=== PATIENT | male | born 1960 | race Caucasian/White ===

== ENCOUNTER 2018-11-10 14:55 | Observation (INO) | payer SELFPAY ==
[2018-11-10 15:09] VITALS: BP 158/93; PULSE 90; RESP 18; TEMP 37; O2SAT 98; BMI 28.0
--- NOTE | 2018-11-10 15:11 | DI.RAD.S_ITS ---
PROCEDURE: XR CHEST 1V INDICATIONS: Chest pain TECHNIQUE: One view of the chest was acquired. COMPARISON: None. FINDINGS: Surgical changes and devices: None. Lungs and pleura: Lungs are clear. No pleural effusions or pneumothorax. Mediastinum: Mediastinal contours appear normal. Heart size is normal. Bones and chest wall: No suspicious bony lesions. Overlying soft tissues appear unremarkable. IMPRESSION: No acute cardiopulmonary disease. Dictated by: Ileana Jiménez M.D. on 11/10/2018 at 16:08 Approved by: Ileana Jiménez M.D. on 11/10/2018 at 16:08
[2018-11-10 15:22] LABS: Add Manual Diff / Slide Review NO; Basophils Absolute Auto 0 /uL (0-100); Basophils Percent Auto 0.5 % (0-2); Eosinophils Absolute Auto 0 /uL (0-450); Eosinophils Percent Auto 0.6 % (2-4); Hemoglobin 18.1 g/dL (13.5-17.5); Lymphocytes Absolute Auto 1900 /uL (1100-4500); Lymphocytes Percent Auto 24.7 % (25-40); Mean Corpuscular HGB Conc 34.2 % (30-36); Mean Corpuscular Hemoglobin 30.9 PG (26-34); Mean Corpuscular Volume 90.4 fL (80-100); Monocytes Absolute Auto 700 /uL (0-900); Monocytes Percent Auto 9.8 % (3-14); Neutrophils Absolute Auto 4900 /uL (1500-7000); Neutrophils Percent Auto 64.4 % (50-75); Platelet Count 215 X10^3/uL (150-400); Red Blood Cell Count 5.86 X10^6/uL (4.5-5.9); Red Cell Distribution Width 13.4 % (11.6-14.8); White Blood Cell Count 7.6 X10^3/uL (4.5-11.0)
--- NOTE | 2018-11-10 15:33 | ED.CHESTPAIN ---
HPI - Chest Pain General Chief Complaint: Chest Pain Stated Complaint: CHEST PAIN Time Seen by Provider: 11/10/18 15:08 Source: patient Mode of arrival: ambulatory Limitations: no limitations History of Present Illness HPI narrative: Patient is a 58-year-old male who presents with chest discomfort. He actually has been experiencing shortness of breath with exertion progressively getting worse over the last 4-5 days. His tried again to come in yesterday however refused. He says with minimal exertion such as walking he has chest discomfort requiring him to stop and catch his breath. Pain is on the left side it is non radiating. He has some mild discomfort now he says level 1-2. He denies any history of coronary artery disease. He states that he has previously been diagnosed with hypertension hyperlipidemia but does not like the way medication makes him feel so he has stopped it. He has not seen a doctor for over 10 years. MD complaint: chest pain Onset (ago): day(s) (5) Duration: progressively worsening Onset: during exertion Pain location: left chest Severity: moderate Relieving factors: rest Exacerbating factors: exertion Related Data Home Medications Medication Instructions Recorded Confirmed No Known Home Medications 11/10/18 11/10/18 Allergies Allergy/AdvReac Type Severity Reaction Status Date / Time No Known Drug Allergies Allergy Verified 11/10/18 15:44 Review of Systems Review of Systems GENERAL: Denies chills, fatigue, malaise, fever, sweats, travel HEENT: Denies sinus pain, ear pain, sore throat, difficulty swallowing, neck pain RESPIRATORY: + shortness of breath with exertion Denies dyspnea, cough, wheezing, hemoptysis, sputum. CARDIOVASCULAR: See HPI GASTROINTESTINAL: Denies nausea, vomiting, abdominal pain, diarrhea, constipation, melena. : Denies dysuria, frequency, incontinence, hematuria, urinary retention, flank pain. MUSCULOSKELETAL: Denies weakness, joint pain, or bony pain SKIN: No rash, no erythema, no pruritus NEUROLOGIC: Denies weakness, dizziness, headache, numbness, change in speech, confusion PSYCHIATRIC: No concerning psychosocial issues. 12 point review of systems is negative except for those stated above and HPI [facility] Medical History Patient denies significant medical history (Acute) Social History Smoking Status: Never smoker Social History Smoking Status: Never smoker Exam Initial Vital Signs Initial Vital Signs: Vital Signs Temperature 98.6 F 11/10/18 15:09 Pulse Rate 90 11/10/18 15:09 Respiratory Rate 18 11/10/18 15:09 Blood Pressure 158/93 H 11/10/18 15:09 Pulse Oximetry 98 11/10/18 15:09 GENERAL: Well-appearing, well-nourished and in no acute distress. HEENT: Head atraumatic,EOMI, pupils reactive, face symmetric, moist mucous membranes CARDIOVASCULAR: Regular rate and rhythm without murmurs, rubs or gallops. RESPIRATORY: Breath sounds equal bilaterally, no wheezes rales or rhonchi. ABDOMEN: Soft, nontender. Normoactive bowel sounds all 4 quadrants. No guarding or rebound. EXTREMITIES: Normal range of motion, no clubbing or edema. Neurovascularly intact NEUROLOGICAL: Alert and oriented x4.Normal gait and speech. SKIN: Warm, dry, no laceration, no petechiae, no rashes or lesions. Course Orders Ordered: ED Orders 11/10/18 15:05 B Type Natriuretic Peptide Stat Complete Blood Count AUTO DIFF Stat Comprehensive Metabolic Panel Stat Lipase Stat Partial Thromboplastin Time Stat Prothrombin Time INR Stat Troponin & CK Cardiac Panel Stat 11/10/18 15:11 XR chest 1V Stat EKG-12 Lead Stat 11/10/18 15:18 EKG-12 Lead Stat Sodium Chloride (Normal Saline 0.9%) 1,000 mls @ 75 mls/hr IV CONT MARGARETTE Last Infusion: 11/10/18 18:11 Dose: 150 mls/hr Admin: 11/10/18 15:50 Dose: 150 mls/hr Nitroglycerin (Nitrostat) 0.4 mg SL [id number] PRN PRN Reason: Chest Pain Discontinued Medications Aspirin (Aspirin Chew) 324 mg PO NOW ONE Stop: 11/10/18 15:12 Last Admin: 11/10/18 15:50 Dose: 324 mg Vital Signs - 8 hr 11/10/18 15:09 11/10/18 16:00 11/10/18 17:15 Temperature 98.6 F Pulse Rate 90 78 60 Respiratory Rate 18 16 Blood Pressure 158/93 H Blood Pressure [Left Arm] 143/87 H 156/70 H Pulse Oximetry 98 98 11/10/18 18:12 11/10/18 18:18 Temperature 98.0 F Pulse Rate 69 68 Respiratory Rate 21 16 Blood Pressure 139/89 145/85 H Blood Pressure [Left Arm] Pulse Oximetry 97 98 MDM - Chest Pain Lab Data Attestation: I reviewed the patient's lab results. Result diagrams: 11/10/18 15:05 11/10/18 15:05 Lab Results 11/10/18 11/10/18 11/10/18 Range/Units 15:05 15:05 15:05 WBC 7.6 (4.5-11.0) X10^3/uL RBC 5.86 (4.5-5.9) X10^6/uL Hgb 18.1 H (13.5-17.5) g/dL Hct 53.0 (41-53) % MCV 90.4 (80-100) fL MCH 30.9 (26-34) PG MCHC 34.2 (30-36) % RDW 13.4 (11.6-14.8) % Plt Count 215 (150-400) X10^3/uL Neut % (Auto) 64.4 (50-75) % Lymph % (Auto) 24.7 L (25-40) % [place] % (Auto) 9.8 (3-14) % Eos % (Auto) 0.6 L (2-4) % Baso % (Auto) 0.5 (0-2) % Neut # (Auto) 4900 (4184-0315) /uL Lymph # (Auto) 1900 (0803-9032) /uL [place] # (Auto) 700 (0-900) /uL Eos # (Auto) 0 (0-450) /uL Baso # (Auto) 0 (0-100) /uL PT 12.0 (10.1-12.7) SECONDS INR 1.0 (0.9-1.3) APTT 34 (26.4-36.2) SECONDS Sodium 142 (137-145) mmol/L Potassium 3.8 (3.4-5.1) mmol/L Chloride 104 (98-107) mmol/L Carbon Dioxide 27 (22-32) mmol/L BUN 16 (9-20) mg/dL Creatinine 1.10 (0.66-1.25) mg/dL Estimated GFR > 60.0 (>60) mL/min BUN/Creatinine Ratio 14.5 (6-22) Glucose 101 H (70-100) mg/dL Calcium 9.8 (8.4-10.2) mg/dL Total Bilirubin 0.8 (0.2-1.3) mg/dL AST 25 (17-59) IU/L ALT 19 L (21-72) IU/L Alkaline Phosphatase 80 (38-126) U/L Total Creatine Kinase 55 (55-170) U/L CK-MB (CK-2) TNP CK-MB (CK-2) Rel Index TNP Troponin I < 0.012 (0.01-0.034) ng/mL B-Natriuretic Peptide (<100) Total Protein 8.1 (6.3-8.2) g/dL Albumin 4.6 (3.5-5.0) g/dL Globulin 3.5 (1.7-4.1) g/dL Albumin/Globulin Ratio 1.3 (1.0-2.8) Lipase 142 (23-300) U/L 11/10/18 Range/Units 15:05 WBC (4.5-11.0) X10^3/uL RBC (4.5-5.9) X10^6/uL Hgb (13.5-17.5) g/dL Hct (41-53) % MCV (80-100) fL MCH (26-34) PG MCHC (30-36) % RDW (11.6-14.8) % Plt Count (150-400) X10^3/uL Neut % (Auto) (50-75) % Lymph % (Auto) (25-40) % [place] % (Auto) (3-14) % Eos % (Auto) (2-4) % Baso % (Auto) (0-2) % Neut # (Auto) (7719-4763) /uL Lymph # (Auto) (0264-7255) /uL [place] # (Auto) (0-900) /uL Eos # (Auto) (0-450) /uL Baso # (Auto) (0-100) /uL PT (10.1-12.7) SECONDS INR (0.9-1.3) APTT (26.4-36.2) SECONDS Sodium (137-145) mmol/L Potassium (3.4-5.1) mmol/L Chloride (98-107) mmol/L Carbon Dioxide (22-32) mmol/L BUN (9-20) mg/dL Creatinine (0.66-1.25) mg/dL Estimated GFR (>60) mL/min BUN/Creatinine Ratio (6-22) Glucose (70-100) mg/dL Calcium (8.4-10.2) mg/dL Total Bilirubin (0.2-1.3) mg/dL AST (17-59) IU/L ALT (21-72) IU/L Alkaline Phosphatase (38-126) U/L Total Creatine Kinase (55-170) U/L CK-MB (CK-2) CK-MB (CK-2) Rel Index Troponin I (0.01-0.034) ng/mL B-Natriuretic Peptide < 100 (<100) Total Protein (6.3-8.2) g/dL Albumin (3.5-5.0) g/dL Globulin (1.7-4.1) g/dL Albumin/Globulin Ratio (1.0-2.8) Lipase (23-300) U/L Urine Dip Bedside Urine Glucose Negative Bedside Urine Bilirubin - Negative Bedside Urine Ketone - Negative Urine Specific [place] 1.015 Bedside Urine Occult Blood - Negative Bedside Urine pH 7.0 Bedside Urine Protein - Negative Bedside Urine Urobilinogen +/- 1mg Bedside Urine Nitrite - Negative Bedside Urine Leukocytes - Negative Esterase ECG Data Attestation: I personally reviewed and interpreted this ECG as follows: Prior ECG tracings: not available for review Interpretation: Sinus rhythm rate 88 year interval the for T-wave inversion noted in lead [address] elevations no depression some other signs of ischemia. No prior to compare. EKG 2. Sinus rhythm rate 71. Interval 185 similar to previous MDM Narrative Medical decision making narrative: Patient is given aspirin and nitro for chest discomfort pain resolved. Troponin is negative. Symptoms are significantly concerning for cardiac disease. Dr. Lamas happily accepts patient for chest pain observation Discharge Plan Departure Patient Disposition: Admitted as Observation Clinical Impression: Chest pain Qualifiers: Chest pain type: other chest pain Qualified Code(s): R07.89 - Other chest pain Discharge Date/Time: 11/10/18 18:13 Interventions: ED Discharge Assessment Last Done: 11/10/18 18:12 Admit Date/Time: 11/10/18 17:29 Admit Provider: Sofy Lamas
[2018-11-10 15:34] LABS: Alanine Aminotransferase 19 IU/L (21-72); Albumin 4.6 g/dL (3.5-5.0); Albumin Globulin Ratio 1.3 (1.0-2.8); Alkaline Phosphatase 80 U/L (38-126); Aspartate Aminotransferase 25 IU/L (17-59); BUN Creatinine Ratio 14.5 (6-22); Bilirubin Total 0.8 mg/dL (0.2-1.3); Blood Urea Nitrogen 16 mg/dL (9-20); Calcium 9.8 mg/dL (8.4-10.2); Carbon Dioxide 27 mmol/L (22-32); Chloride 104 mmol/L (98-107); Creatine Kinase 55 U/L (55-170); Estimated Glomerular Filt Rate > 60.0 mL/min (>60); Globulin 3.5 g/dL (1.7-4.1); Glucose 101 mg/dL (70-100); HEMOLYSIS 17 (0-50); Lipase 142 U/L (23-300); Potassium 3.8 mmol/L (3.4-5.1); Sodium 142 mmol/L (137-145); Total Protein 8.1 g/dL (6.3-8.2)
--- NOTE | 2018-11-10 15:37 | ED_ITS ---
HPI - Chest Pain General Chief Complaint: Chest Pain Stated Complaint: CHEST PAIN Time Seen by Provider: 11/10/18 15:08 Source: patient Mode of arrival: ambulatory Limitations: no limitations History of Present Illness HPI narrative: Patient is a 58-year-old male who presents with chest discomfort. He actually has been experiencing shortness of breath with exertion progressively getting worse over the last 4-5 days. His tried again to come in yesterday however refused. He says with minimal exertion such as walking he has chest discomfort requiring him to stop and catch his breath. Pain is on the left side it is non radiating. He has some mild discomfort now he says level 1-2. He denies any history of coronary artery disease. He states that he has previously been diagnosed with hypertension hyperlipidemia but does not like the way medication makes him feel so he has stopped it. He has not see n a doctor for over 10 years. MD complaint: chest pain Onset (ago): day(s) (5) Duration: progressively worsening Onset: during exertion Pain location: left chest Severity: moderate Relieving factors: rest Exacerbating factors: exertion Related Data Home Medications Medication Instructions Recorded Confirmed No Known Home Medications 11/10/18 11/10/18 Allergies Allergy/AdvReac Type Severity Reaction Status Date / Time No Known Drug Allergies Allergy Verified 11/10/18 15:44 Review of Systems Review of Systems GENERAL: Denies chills, fatigue, malaise, fever, sweats, travel HEENT: Denies sinus pain, ear pain, sore throat, difficulty swallowing, neck pain RESPIRATORY: + shortness of breath with exertion Denies dyspnea, cough, wh eezing, hemoptysis, sputum. CARDIOVASCULAR: See HPI GASTROINTESTINAL: Denies nausea, vomiting, abdominal pain, diarrhea, constipation, melena. : Denies dysuria, frequency, incontinence, hematuria, urinary retention, flank pain. MUSCULOSKELETAL: Denies weakness, joint pain, or bony pain SKIN: No rash, no erythema, no pruritus NEUROLOGIC: Denies weakness, dizziness, headache, numbness, change in speech, confusion PSYCHIATRIC: No concerning psychosocial issues. 12 point review of systems is negative except for those stated above and HPI [facility] Medical History Patient denies significant medical history (Acute) Social History Smoking Status: Never smoker Social History Smoking Status: Never smoker Exam Initial Vital Signs Initial Vital Signs: Vital Signs Temperature 98.6 F 11/10/18 15:09 Pulse Rate 90 11/10/18 15:09 Respiratory Rate 18 11/10/18 15:09 Blood Pressure 158/93 H 11/10/18 15:09 Pulse Oximetry 98 11/10/18 15:09 GENERAL: Well-appearing, well-nourished and in no acute distress. HEENT: Head atraumatic,EOMI, pupils reactive, face symmetric, moist mucous membranes CARDIOVASCULAR: Regular rate and rhythm without murmurs, rubs or gallops. RESPIRATORY: Breath sounds equal bilaterally, no wheezes rales or rhonchi. ABDOMEN: Soft, nontender. Normoactive bowel sounds all 4 quadrants. No guarding or rebound. EXTREMITIES: Normal range of motion, no clubbing or edema. Neurovascularly intact NEUROLOGICAL: Alert and oriented x4.Normal gait and speech. SKIN: Warm, dry, no laceration, no petechiae, no rashes or lesions. Course Orders Ordered: ED Orders 11/10/18 15:05 B Type Natriuretic Peptide Stat Complete Blood Count AUTO DIFF Stat Comprehensive Metabolic Panel Stat Lipase Stat Partial Thromboplastin Time Stat Prothrombin Time INR Stat Troponin & CK Cardiac Panel Stat 11/10/18 15:11 XR chest 1V Stat EKG-12 Lead Stat 11/10/18 15:18 EKG-12 Lead Stat Sodium Chloride (Normal Saline 0.9%) 1,000 mls @ 75 mls/hr IV CONT MARGARETTE Last Infusion: 11/10/18 18:11 Dose: 150 mls/hr Admin: 11/10/18 15:50 Dose: 150 mls/hr Nitroglycerin (Nitrostat) 0.4 mg SL [id number] PRN PRN Reason: Chest Pain Discontinued Medications Aspirin (Aspirin Chew) 324 mg PO NOW ONE Stop: 11/10/18 15:12 Last Admin: 11/10/18 15:50 Dose: 324 mg Vital Signs - 8 hr 11/10/18 15:09 11/10/18 16:00 11/10/18 17:15 Temperature 98.6 F Pulse Rate 90 78 60 Respiratory Rate 18 16 Blood Pressure 158/93 H Blood Pressure [Left Arm] 143/87 H 156/70 H Pulse Oximetry 98 98 11/10/18 18:12 11/10/18 18:18 Temperature 98.0 F Pulse Rate 69 68 Respiratory Rate 21 16 Blood Pressure 139/89 145/85 H Blood Pressure [Left Arm] Pulse Oximetry 97 98 MDM - Chest Pain Lab Data Attestation: I reviewed the patient's lab results. Result diagrams: 11/10/18 15:05 11/10/18 15:05 Lab Results 11/10/18 11/10/18 11/10/18 Range/Units 15:05 15:05 15:05 WBC 7.6 (4.5-11.0) X10^3/uL RBC 5.86 (4.5-5.9) X10^6/uL Hgb 18.1 H (13.5-17.5) g/dL Hct 53.0 (41-53) % MCV 90.4 (80-100) fL MCH 30.9 (26-34) PG MCHC 34.2 (30-36) % RDW 13.4 (11.6-14.8) % Plt Count 215 (150-400) X10^3/uL Neut % (Auto) 64.4 (50-75) % Lymph % (Auto) 24.7 L (25-40) % [place] % (Auto) 9.8 (3-14) % Eos % (Auto) 0.6 L (2-4) % Baso % (Auto) 0.5 (0-2) % Neut # (Auto) 4900 (3318-9622) /uL Lymph # (Auto) 1900 (8516-7535) /uL [place] # (Auto) 700 (0-900) /uL Eos # (Auto) 0 (0-450) /uL Baso # (Auto) 0 (0-100) /uL PT 12.0 (10.1-12.7) SECONDS INR 1.0 (0.9-1.3) APTT 34 (26.4-36.2) SECONDS Sodium 142 (137-145) mmol/L Potassium 3.8 (3.4-5.1) mmol/L Chloride 104 (98-107) mmol/L Carbon Dioxide 27 (22-32) mmol/L BUN 16 (9-20) mg/dL Creatinine 1.10 (0.66-1.25) mg/dL Estimated GFR > 60.0 (>60) mL/min BUN/Creatinine Ratio 14.5 (6-22) Glucose 101 H (70-100) mg/dL Calcium 9.8 (8.4-10.2) mg/dL Total Bilirubin 0.8 (0.2-1.3) mg/dL AST 25 (17-59) IU/L ALT 19 L (21-72) IU/L Alkaline Phosphatase 80 (38-126) U/L Total Creatine Kinase 55 (55-170) U/L CK-MB (CK-2) TNP CK-MB (CK-2) Rel Index TNP Troponin I < 0.012 (0.01-0.034) ng/mL B-Natriuretic Peptide (<100) Total Protein 8.1 (6.3-8.2) g/dL Albumin 4.6 (3.5-5.0) g/dL Globulin 3.5 (1.7-4.1) g/dL Albumin/Globulin Ratio 1.3 (1.0-2.8) Lipase 142 (23-300) U/L // Range/Units 15:05 WBC (4.5-11.0) X10^3/uL RBC (4.5-5.9) X10^6/uL Hgb (13.5-17.5) g/dL Hct (41-53) % MCV (80-100) fL MCH (26-34) PG MCHC (30-36) % RDW (11.6-14.8) % Plt Count (150-400) X10^3/uL Neut % (Auto) (50-75) % Lymph % (Auto) (25-40) % [place] % (Auto) (3-14) % Eos % (Auto) (2-4) % Baso % (Auto) (0-2) % Neut # (Auto) (7412-8947) /uL Lymph # (Auto) (2083-2986) /uL [place] # (Auto) (0-900) /uL Eos # (Auto) (0-450) /uL Baso # (Auto) (0-100) /uL PT (10.1-12.7) SECONDS INR (0.9-1.3) APTT (26.4-36.2) SECONDS Sodium (137-145) mmol/L Potassium (3.4-5.1) mmol/L Chloride (98-107) mmol/L Carbon Dioxide (22-32) mmol/L BUN (9-20) mg/dL Creatinine (0.66-1.25) mg/dL Estimated GFR (>60) mL/min BUN/Creatinine Ratio (6-22) Glucose (70-100) mg/dL Calcium (8.4-10.2) mg/dL Total Bilirubin (0.2-1.3) mg/dL AST (17-59) IU/L ALT (21-72) IU/L Alkaline Phosphatase (38-126) U/L Total Creatine Kinase (55-170) U/L CK-MB (CK-2) CK-MB (CK-2) Rel Index Troponin I (0.01-0.034) ng/mL B-Natriuretic Peptide < 100 (<100) Total Protein (6.3-8.2) g/dL Albumin (3.5-5.0) g/dL Globulin (1.7-4.1) g/dL Albumin/Globulin Ratio (1.0-2.8) Lipase (23-300) U/L Urine Dip Bedside Urine Glucose Negative Bedside Urine Bilirubin - Negative Bedside Urine Ketone - Negative Urine Specific [place] 1.015 Bedside Urine Occult Blood - Negative Bedside Urine pH 7.0 Bedside Urine Protein - Negative Bedside Urine Urobilinogen +/- 1mg Bedside Urine Nitrite - Negative Bedside Urine Leukocytes - Negative Esterase ECG Data Attestation: I personally reviewed and interpreted this ECG as follows: Prior ECG tracings: not available for review Interpretation: Sinus rhythm rate 88 year interval the for T-wave inversion noted in lead [address] elevations no depression some other signs of ischemia. No prior to compare. EKG 2. Sinus rhythm rate 71. Interval 185 similar to previous MDM Narrative Medical decision making narrative: Patient is given aspirin and nitro for chest discomfort pain resolved. Troponin is negative. Symptoms are significantly concerning for cardiac disease. Dr. Lamas happily accepts patient for chest pain observation Discharge Plan Departure Patient Disposition: Admitted as Observation Clinical Impression: Chest pain Qualifiers: Chest pain type: other chest pain Qualified Code(s): R07.89 - Other chest pain Discharge Date/Time: 11/10/18 18:13 Interventions: ED Discharge Assessment Last Done: 11/10/18 18:12 Admit Date/Time: 11/10/18 17:29 Admit Provider: Sofy Lamas
[2018-11-10 15:38] LABS: PTT Partial Thromboplastin Tim 34 SECONDS (26.4-36.2)
[2018-11-10 15:46] LABS: Troponin I < 0.012 ng/mL (0.01-0.034)
[2018-11-10] MEDS: SODIUM CHLORIDE 0.9% 1,000 ML 150 ML IV (15:50)
[2018-11-10] MEDS: ASPIRIN 81 MG TAB 324 MG PO (15:50)
[2018-11-10 16:00] VITALS: BP 143/87; PULSE 78; RESP 16; O2SAT 98
[2018-11-10 16:17] LABS: B Type Natriuretic Peptide < 100 (<100)
[2018-11-10 17:15] VITALS: BP 156/70; PULSE 60
[2018-11-10 18:12] VITALS: BP 139/89; PULSE 69; RESP 21; O2SAT 97
[2018-11-10 18:18] VITALS: BP 145/85; PULSE 68; RESP 16; TEMP 36.7; O2SAT 98
[2018-11-10 18:29] VITALS: BMI 28.0
--- NOTE | 2018-11-10 20:51 | DI.US.S_ITS ---
PROCEDURE: US PERIPH VENOUS LOW EXTREM BI INDICATIONS: LEG PAIN TECHNIQUE: Real-time imaging, as well as color and pulse Doppler interrogation, were performed of the deep veins of both legs from the inguinal ligament to the popliteal fossa. COMPARISON: None. FINDINGS: Right: The common femoral, femoral and popliteal veins are normally compressible, and free of intraluminal thrombus. Color and pulse Doppler demonstrate normal phasic intravascular flow. There is normal augmentation response to distal compression maneuver. Left: The common femoral, femoral and popliteal veins are normally compressible, and free of intraluminal thrombus. Color and pulse Doppler demonstrate normal phasic intravascular flow. There is normal augmentation response to distal compression maneuver. The patient reports many years of a dilated medial left thigh vein which becomes tender she palpates it extensively. This appears to represent a dilated varicose vein of the superficial. IMPRESSION: No DVT is found. Medial left thigh dilated vein discussed above is a component of the superficial venous system, a varicosity, containing no superficial vein thrombosis either. Dictated by: Sahil Kelly M.D. on 11/11/2018 at 9:43 Approved by: Sahil Kelly M.D. on 11/11/2018 at 9:46
--- NOTE | 2018-11-10 21:02 | PM.HP.1 ---
History of Present Illness Date Patient Seen: 11/10/18 Time Patient Seen: 20:30 Chief complaint: CHEST PAIN Narrative: Joby Díaz is a 58-year-old male who presented with a 4 to five-day history of pain in his left chest under his arm. He states he has been dizzy. It worsens with exertion and relieved by rest. He particularly feels it when he is breathing and he describes the pain as being a dull ache with occasional throbbing this. He became nauseous and states that his balance is off feeling lightheaded. He has a history of being worked up and undergoing some sort of stress testing a few years ago but he does not remember the details of how exactly how long it was ago or what the reason was. The patient does not have health insurance and therefore does not go to a regular PCP. He did go to someone over in [place] but stated that the providers change frequently and it appears he was lost to follow-up. He previously took atenolol for blood pressure but found that it slowed him down. 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 He also stated that others around him seem to think it caused personality changes specifically being apathetic. The patient states that he has frequent headaches, he complains of having sores on his left lower eyelid and eye pain. He denies fever but states that his hands are always wet with sweat, he has chronic nasal congestion which he states impairs his breathing. His fiancee who was in the room states that he does not snore however it does sound to her like he stops breathing and then he will ?snort? and wake up. He denies palpitations, shortness of breath, he did have nausea and has been somewhat repellent by food, he denies diarrhea constipation. He also states that he has been urinating more often than usual. He complains of pain in his left upper leg stating that the vein gets quite swollen and enlarged particularly increased when he tries to massage. Patient History Medical History (Updated 11/10/18 @ 22:46 by RUTH Núñez) Chest pain on exertion (Acute) Family history of premature CAD (Acute) Hordeolum externum (stye) (Acute) Patient denies significant medical history (Acute) Essential hypertension (Chronic) Swallowing disorder (Chronic) Uninsured (Chronic) Hyperlipidemia (Suspected) Surgical History (Updated 11/10/18 @ 21:06 by RUTH Núñez) Hx of hernia repair (Resolved) Family History (Updated 11/10/18 @ 22:10 by RUTH Núñez) Mother Myocardial infarct Father CVA (cerebral vascular accident) Lung cancer Sister Diabetes mellitus Social History household members: significant other Smoking Status: Never smoker Family & Social History Social History: household members significant other Prior Living Arrangements House Safety & Behavioral: Feels Safe in Current Yes Environment Suicidal Ideation Description None Suicide Plan Description No Plan Tobacco & Substance use: Smoking Status Never smoker alcohol intake frequency holiday/special occasion Substance Use Type does not use Meds Home Medications Medication Instructions Recorded Confirmed Type No Known Home Medications 11/10/18 11/10/18 History Allergies Allergy/AdvReac Type Severity Reaction Status Date / Time No Known Drug Allergies Allergy Verified 11/10/18 15:44 Review of Systems Review of Systems All systems reviewed & are unremarkable except as noted in HPI and below Exam Vital Signs (past 8 hours): - 11/10/18 15:09 11/10/18 16:00 11/10/18 17:15 Temperature 98.6 F Pulse Rate 90 78 60 Respiratory Rate 18 16 Blood Pressure 158/93 H Blood Pressure [Left Arm] 143/87 H 156/70 H Pulse Oximetry 98 98 11/10/18 18:12 11/10/18 18:18 Temperature 98.0 F Pulse Rate 69 68 Respiratory Rate 21 16 Blood Pressure 139/89 145/85 H Blood Pressure [Left Arm] Pulse Oximetry 97 98 Oxygen Delivery Method Room Air Narrative Exam Narrative: Gen: Alert, oriented 58 y.o. well-developed male, NAD HEENT: normocephalic, atraumatic, appears to have 2 punctate lesions on the lower left eyelid, conjunctiva clear, sclera non-icteric, but mildly erythematous, oral mucosa pink and moist Neck: supple, full ROM Resp: Lungs CTA, non-labored breathing CV: RRR, no murmur or rubs Abd: soft, non-tender, normoactive BTs Skin: no lesions or rashes, dry and intact Neuro: Alert and oriented X 4 w/no focal deficits Extremities: He does have upper medial thigh pain of the left leg and has a visible large vein that is flat at this time, moves all 4 extremities, is ambulatory Psyche: normal mood and affect. Objective Labs Result Diagrams: 11/10/18 15:05 11/10/18 15:05 Labs: Laboratory Results - last 24 hr 11/10/18 11/10/18 11/10/18 15:05 15:05 15:05 WBC 7.6 RBC 5.86 Hgb 18.1 H Hct 53.0 MCV 90.4 MCH 30.9 MCHC 34.2 RDW 13.4 Plt Count 215 Neut % (Auto) 64.4 Lymph % (Auto) 24.7 L [place] % (Auto) 9.8 Eos % (Auto) 0.6 L Baso % (Auto) 0.5 Neut # (Auto) 4900 Lymph # (Auto) 1900 [place] # (Auto) 700 Eos # (Auto) 0 Baso # (Auto) 0 PT 12.0 INR 1.0 APTT 34 Sodium 142 Potassium 3.8 Chloride 104 Carbon Dioxide 27 BUN 16 Creatinine 1.10 Estimated GFR > 60.0 BUN/Creatinine Ratio 14.5 Glucose 101 H Calcium 9.8 Total Bilirubin 0.8 AST 25 ALT 19 L Alkaline Phosphatase 80 Total Creatine Kinase 55 CK-MB (CK-2) TNP CK-MB (CK-2) Rel Index TNP Troponin I < 0.012 B-Natriuretic Peptide Total Protein 8.1 Albumin 4.6 Globulin 3.5 Albumin/Globulin Ratio 1.3 Lipase 142 11/10/18 15:05 WBC RBC Hgb Hct MCV MCH MCHC RDW Plt Count Neut % (Auto) Lymph % (Auto) [place] % (Auto) Eos % (Auto) Baso % (Auto) Neut # (Auto) Lymph # (Auto) [place] # (Auto) Eos # (Auto) Baso # (Auto) PT INR APTT Sodium Potassium Chloride Carbon Dioxide BUN Creatinine Estimated GFR BUN/Creatinine Ratio Glucose Calcium Total Bilirubin AST ALT Alkaline Phosphatase Total Creatine Kinase CK-MB (CK-2) CK-MB (CK-2) Rel Index Troponin I B-Natriuretic Peptide < 100 Total Protein Albumin Globulin Albumin/Globulin Ratio Lipase Assessment & Plan Assessment & Plan narrative: 1. Chest pain, acute, present on admission Patient is placed into observation on telemetry Serial troponins-first 2 are negative, continue one more troponin. Nitroglycerin sublingual as needed for chest pain Dedrick protocol stress test in the morning He is initiated on aspirin 81 mg p.o. daily He is an unlikely candidate for beta-abram given his poor reaction to atenolol. No beta-blockers until he has had a stress test in morning. EKG indicated flipped t-waves in only 1 lead V3 2. Essential hypertension, chronic, present on admission He will likely be started on a RORY-inhibitor after the stress test of his blood pressure indicates a need for this. 3. Hyperlipidemia, suspected, present on admission Fasting lipid panel in the am. 4. Pain of the medial left thigh, chronic, present on admission I have ordered a duplex ultrasound to rule out presence of a possible chronic DVT. 5. Hordeolum externum (stye) He is ordered for erythromycin ophthalmic ointment apply b.i.d. 6. Elevated glucose without a diagnosis of diabetes, present on admission 7. Suspected sleep apnea, present on admission Monitor oxygen saturations May need outpatient referral to a sleep study BMP in the morning, if elevated will do a hemoglobin A1c. 8. Family history of premature coronary artery disease Patient will need to be closely monitored for hypertension and coronary artery disease Patient is admitted to an observation bed as his stay is anticipated to not exceed 2 midnights. FEN: IV saline lock, heart healthy diet, bmp in the am. VTE Prophylaxis: Enoxaparin 40 mg subQ daily Disposition: Unknown at this time. SW consult for referral to a PCP in the [place] or [place] area, enrollment in the insurance exchange. Code status: Full Code Admission time: 75 minutes Meds reconciled: N/A, does not take medication. Quality VTE Deep Vein Thrombosis/Pulmonary Embolism Present on Admission: No
--- NOTE | 2018-11-10 21:06 | P.HP_ITS ---
History of Present Illness Date Patient Seen: 11/10/18 Time Patient Seen: 20:30 Chief complaint: CHEST PAIN Narrative: Joby Díaz is a 58-year-old male who presented with a 4 to five-day history of pain in his left chest under his arm. He states he has been dizzy. It worsens with exertion and relieved by rest. He particularly feels it when he is breathing and he describes the pain as being a dull ache with occasional throbbing this. He became nauseous and states that his balance is off feeling lightheaded. He has a history of being worked up and undergoing some sort of stress testing a few years ago but he does not remember the details of how exactly how long it was ago or what the reason was. The patient does not have health insurance and therefore does not go to a [facility] PCP. He did go to someone over in [place] but stated that the providers change frequently and it appears he was lost to follow-up. He previously took atenolol for blood pressure but found that it slowed him down. 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 He also stated that others around him seem to think it caused personality changes specifically being apathetic. The patient states that he has frequent headaches, he complains of having sores on his left lower eyelid and eye pain. He denies fever but states that his hands are always wet with sweat, he has chronic nasal congestion which he states impairs his breathing. His fiancee who was in the room states that he does not snore however it does sound to her like he stops breathing and then he will ?snort? and wake up. He denies palpitations, shortness of breath, he did have nausea and has been somewhat repellent by food, he denies diarrhea constipation. He also states that he has been urinating more often than usual. He complains of pain in his left upper leg stating that the vein gets quite swollen and enlarged particularly increased when he tries to massage. Patient History Medical History (Updated 11/10/18 @ 22:46 by RUTH Núñez) Chest pain on exertion (Acute) Family history of premature CAD (Acute) Hordeolum externum (stye) (Acute) Patient denies significant medical history (Acute) Essential hypertension (Chronic) Swallowing disorder (Chronic) Uninsured (Chronic) Hyperlipidemia (Suspected) Surgical History (Updated 11/10/18 @ 21:06 by RUTH Núñez) Hx of hernia repair (Resolved) Family History (Updated 11/10/18 @ 22:10 by RUTH Núñez) Mother Myocardial infarct Father CVA (cerebral vascular accident) Lung cancer Sister Diabetes mellitus Social History household members: significant other Smoking Status: Never smoker Family & Social History Social History: household members significant other Prior Living Arrangements House Safety & Behavioral: Feels Safe in Current Yes Environment Suicidal Ideation Description None Suicide Plan Description No Plan Tobacco & Substance use: Smoking Status Never smoker alcohol intake frequency holiday/special occasion Substance Use Type does not use Meds Home Medications Medication Instructions Recorded Confirmed Type No Known Home Medications 11/10/18 11/10/18 History Allergies Allergy/AdvReac Type Severity Reaction Status Date / Time No Known Drug Allergies Allergy Verified 11/10/18 15:44 Review of Systems Review of Systems All systems reviewed & are unremarkable except as noted in HPI and below Exam Vital Signs (past 8 hours): - 11/10/18 15:09 11/10/18 16:00 11/10/18 17:15 Temperature 98.6 F Pulse Rate 90 78 60 Respiratory Rate 18 16 Blood Pressure 158/93 H Blood Pressure [Left Arm] 143/87 H 156/70 H Pulse Oximetry 98 98 11/10/18 18:12 11/10/18 18:18 Temperature 98.0 F Pulse Rate 69 68 Respiratory Rate 21 16 Blood Pressure 139/89 145/85 H Blood Pressure [Left Arm] Pulse Oximetry 97 98 Oxygen Delivery Method Room Air Narrative Exam Narrative: Gen: Alert, oriented 58 y.o. well-developed male, NAD HEENT: normocephalic, atraumatic, appears to have 2 punctate lesions on the lower left eyelid, conjunctiva clear, sclera non-icteric, but mildly erythematous, oral mucosa pink and moist Neck: supple, full ROM Resp: Lungs CTA, non-labored breathing CV: RRR, no murmur or rubs Abd: soft, non-tender, normoactive BTs Skin: no lesions or rashes, dry and intact Neuro: Alert and oriented X 4 w/no focal deficits Extremities: He does have upper medial thigh pain of the left leg and has a visible large vein that is flat at this time, moves all 4 extremities, is ambulatory Psyche: normal mood and affect. Objective Labs Result Diagrams: 11/10/18 15:05 11/10/18 15:05 Labs: Laboratory Results - last 24 hr 11/10/18 11/10/18 11/10/18 15:05 15:05 15:05 WBC 7.6 RBC 5.86 Hgb 18.1 H Hct 53.0 MCV 90.4 MCH 30.9 MCHC 34.2 RDW 13.4 Plt Count 215 Neut % (Auto) 64.4 Lymph % (Auto) 24.7 L [place] % (Auto) 9.8 Eos % (Auto) 0.6 L Baso % (Auto) 0.5 Neut # (Auto) 4900 Lymph # (Auto) 1900 [place] # (Auto) 700 Eos # (Auto) 0 Baso # (Auto) 0 PT 12.0 INR 1.0 APTT 34 Sodium 142 Potassium 3.8 Chloride 104 Carbon Dioxide 27 BUN 16 Creatinine 1.10 Estimated GFR > 60.0 BUN/Creatinine Ratio 14.5 Glucose 101 H Calcium 9.8 Total Bilirubin 0.8 AST 25 ALT 19 L Alkaline Phosphatase 80 Total Creatine Kinase 55 CK-MB (CK-2) TNP CK-MB (CK-2) Rel Index TNP Troponin I < 0.012 B-Natriuretic Peptide Total Protein 8.1 Albumin 4.6 Globulin 3.5 Albumin/Globulin Ratio 1.3 Lipase 142 11/10/18 15:05 WBC RBC Hgb Hct MCV MCH MCHC RDW Plt Count Neut % (Auto) Lymph % (Auto) [place] % (Auto) Eos % (Auto) Baso % (Auto) Neut # (Auto) Lymph # (Auto) [place] # (Auto) Eos # (Auto) Baso # (Auto) PT INR APTT Sodium Potassium Chloride Carbon Dioxide BUN Creatinine Estimated GFR BUN/Creatinine Ratio Glucose Calcium Total Bilirubin AST ALT Alkaline Phosphatase Total Creatine Kinase CK-MB (CK-2) CK-MB (CK-2) Rel Index Troponin I B-Natriuretic Peptide < 100 Total Protein Albumin Globulin Albumin/Globulin Ratio Lipase Assessment & Plan Assessment & Plan narrative: 1. Chest pain, acute, present on admission * Patient is placed into observation on telemetry * Serial troponins-first 2 are negative, continue one more troponin. * Nitroglycerin sublingual as needed for chest pain * Dedrick protocol stress test in the morning * He is initiated on aspirin 81 mg p.o. daily * He is an unlikely candidate for beta-abram given his poor reaction to atenolol. No beta-blockers until he has had a stress test in morning. * EKG indicated flipped t-waves in only 1 lead V3 2. Essential hypertension, chronic, present on admission * He will likely be started on a RORY-inhibitor after the stress test of his blood pressure indicates a need for this. 3. Hyperlipidemia, suspected, present on admission * Fasting lipid panel in the am. 4. Pain of the medial left thigh, chronic, present on admission * I have ordered a duplex ultrasound to rule out presence of a possible chronic DVT. 5. Hordeolum externum (stye) * He is ordered for erythromycin ophthalmic ointment apply b.i.d. 6. Elevated glucose without a diagnosis of diabetes, present on admission 7. Suspected sleep apnea, present on admission * Monitor oxygen saturations * May need outpatient referral to a sleep study * BMP in the morning, if elevated will do a hemoglobin A1c. 8. Family history of premature coronary artery disease * Patient will need to be closely monitored for hypertension and coronary artery disease Patient is admitted to an observation bed as his stay is anticipated to not exceed 2 midnights. FEN: IV saline lock, heart healthy diet, bmp in the am. VTE Prophylaxis: Enoxaparin 40 mg subQ daily Disposition: Unknown at this time. consult for referral to a PCP in the [place] or [place] area, enrollment in the insurance exchange. Code status: Full Code Admission time: 75 minutes Meds reconciled: N/A, does not take medication. Quality VTE Deep Vein Thrombosis/Pulmonary Embolism Present on Admission: No
[2018-11-10] MEDS: SODIUM CHLORIDE 0.9% 1,000 ML 75 ML IV (21:42)
[2018-11-10 21:50] LABS: INR 1.1 (0.9-1.3); Prothrombin Time 12.9 SECONDS (10.1-12.7)
[2018-11-10 22:02] LABS: Magnesium 1.9 mg/dL (1.6-2.3); Phosphorous 3.6 mg/dL (2.5-4.5)
[2018-11-10 22:10] LABS: Troponin I < 0.012 ng/mL (0.01-0.034)
[2018-11-10] MEDS: ERYTHROMYCIN OPHTH 1 GM OINT 1 APPLIC EYE-LEFT (22:22)
[2018-11-10 23:58] VITALS: BP 129/82; PULSE 62; RESP 16; TEMP 36.8; O2SAT 97
[2018-11-11 00:05] VITALS: O2SAT 97
[2018-11-11 04:30] VITALS: BP 134/84; PULSE 57; RESP 16; TEMP 36.7; O2SAT 96
[2018-11-11 06:06] LABS: Add Manual Diff / Slide Review NO; BUN Creatinine Ratio 14.4 (6-22); Basophils Absolute Auto 0 /uL (0-100); Basophils Percent Auto 0.5 % (0-2); Blood Urea Nitrogen 13 mg/dL (9-20); Calcium 8.8 mg/dL (8.4-10.2); Carbon Dioxide 26 mmol/L (22-32); Chloride 107 mmol/L (98-107); Eosinophils Absolute Auto 100 /uL (0-450); Eosinophils Percent Auto 1.1 % (2-4); Estimated Glomerular Filt Rate > 60.0 mL/min (>60); Glucose 106 mg/dL (70-100); HEMOLYSIS 15 (0-50); Hematocrit 50.1 % (41-53); Hemoglobin 17.2 g/dL (13.5-17.5); Lymphocytes Absolute Auto 2000 /uL (1100-4500); Lymphocytes Percent Auto 28.5 % (25-40); Mean Corpuscular HGB Conc 34.3 % (30-36); Mean Corpuscular Hemoglobin 31.3 PG (26-34); Mean Corpuscular Volume 91.2 fL (80-100); Monocytes Absolute Auto 700 /uL (0-900); Monocytes Percent Auto 9.6 % (3-14); Neutrophils Absolute Auto 4100 /uL (1500-7000); Neutrophils Percent Auto 60.3 % (50-75); Platelet Count 191 X10^3/uL (150-400); Red Blood Cell Count 5.49 X10^6/uL (4.5-5.9); Red Cell Distribution Width 13.3 % (11.6-14.8); Sodium 142 mmol/L (137-145); White Blood Cell Count 6.9 X10^3/uL (4.5-11.0)
[2018-11-11 06:07] LABS: Cholesterol 161 mg/dL (140-199); HDL Cholesterol 38 mg/dL (40-60); LDL Cholesterol Calculated 102 mg/dL (<100); Triglycerides 107 mg/dL (35-150)
[2018-11-11 06:17] LABS: Troponin I < 0.012 ng/mL (0.01-0.034)
[2018-11-11 07:35] VITALS: BP 133/78; PULSE 65; RESP 16; TEMP 36.8; O2SAT 98
[2018-11-11 09:10] VITALS: O2SAT 97
[2018-11-11] MEDS: ERYTHROMYCIN OPHTH 1 GM OINT 1 APPLIC EYE-LEFT (09:23)
[2018-11-11] MEDS: ASPIRIN EC 81 MG TABLET PO (09:23)
[2018-11-11] MEDS: ENOXAPARIN 40 MG/0.4 ML SYRINGE SUBCUT (09:24)
[2018-11-11] MEDS: SODIUM CHLORIDE 0.9% 1,000 ML 75 ML IV (09:29)
--- NOTE | 2018-11-11 09:59 | CM.DANOTE ---
Patient is a 58 year old male who was admitted on 11/10/18 for Chest Pain. Pt has Self Pay for no insurance and his PCP is Dr. Linda Woodall. EMR was reviewed. Per MD, monitoring pt's oxygen levels and scheduled stress test for today and pending results pt likely can d/c today or tomorrow. SW met bedside with pt and explained role and pt confirms that he lives at home in [place] with his Sig Toby Shane and is Independent with ADL's at baseline and works a very physical job and drives. Pt does not use equipment to ambulate at baseline and denies any hx of HH or SNF. Pt denies any formal DPOA at this time. Pt states that he has begun having more medical symptoms like dizziness, swelling, sweaty hands, etc. that he has been concerned about. Pt confirms that he does not currently have medical insurance and SW informed him that Charley from [facility] will meet bedside with him this morning to determine if he qualifies for insurance or help set him up with insurance if possible and pt and Sig Other very appreciative. Plan: SW to follow for Stress Test to be completed and results to determine if pt safe for d/c back home with Sig Toby Shane and any further identified discharge planning needs. GER Romo Discharge Planning/Care Management CM Discharge Assessment Start: 11/11/18 09:57 Freq: Status: Active Protocol: Document 11/11/18 09:57 BF (Rec: 11/11/18 09:59 BF [id number]) Discharge Planning Assessment Assigned [employer] GER [place] Advance Directives? No Advance Directives on File No History Provided By Patient Medical Record Has Patient been admitted in last 30 No days? Prior Living Arrangements House Household Members significant other Type of transporation used prior to Drives own vehicle admit Independent with ADL's Yes Is patient alert and oriented? Yes Caregiver for Another No Comment Likely home pending Stress Test Barriers to Discharge Yes Comment Self pay, no insurance Discharge Plan Home Transportation Arrangement Sig Other bedside and can likely provide transport at d/ c. Referrals Initiated None needed Whiteboard Updated in Patient Room with Yes name and ext. # of [employer] Review Status In Process Please Provide Date Initial DC 11/11/18 Assessment Was Performed Next Review Type Continued Stay Review
[2018-11-11 10:03] LABS: Troponin I < 0.012 ng/mL (0.01-0.034)
--- NOTE | 2018-11-11 10:10 | PC.NURSE ---
Addendum entered by Analy Jacobson R.N. 11/11/18 12:15: Pt left for stress test around 1140 via wheelchair. Pt back at 1217 via wheelchair and transporter. Original Note: Day Shift- Pt A&OX4, Jhon Shane at bedside. Pt able to make his needs known using call light. Low fall risk, pt steady on feet with ambulation, denies any dizziness or light-headedness with movement. Encouraged slow rise to stand movements. Ambulates in room to BR indep. Rates 2/10 intermittent chest pain, dull aching, non radiating to left chest above nipple. Pain with exertion OOB intermittently, none with rest. Non-distressing. O2 sat 97% on RA, denies any shortness or breath on rest, states had SOBOE at home with exertion. AE clear and diminished to bases bilaterally. U/S venous doppler done around 0900. Plan for stress test around 1200 per HAYDEE Jones. Pt had 1/2 piece toast for breakfast, 2 sips gingerale and water. NPO after 0900. Had small sip of water with 1 pill around 0905. IVF infusing well to right AC PIV, voiding qs yellow clear urine.
[2018-11-11 11:40] VITALS: BP 132/64; PULSE 65; RESP 16; TEMP 36.6; O2SAT 96
--- NOTE | 2018-11-11 12:17 | PM.TREADMILL ---
Cardiac Stress Test Report Referral & Results Date Patient Seen: 11/11/18 Time Patient Seen: 12:17 Requesting provider: Sofy Lamas Indication: Chest pain Rest ECG: Unremarkable Procedure Note: Today following both written and verbal informed consent, the patient was exercised according to a standard Dedrick protocol. The patient exercised for a total of 7 minutes 8 seconds achieving a maximum heart rate of 136. Patient's maximum systolic blood pressure was 170. This was an estimated 10.[address]-T segment changes Normal heart rate and blood pressure response to exercise Functional aerobic impairment rates about 10% in the sedentary scale Occasional to rare PVC Impression: No evidence of ischemia per usual ECG criteria Average exercise capacity Ventricular dysrhythmia as above Please note: Actual ECG tracings can be found in the PACS system.
--- NOTE | 2018-11-11 14:30 | PT.IIE ---
Surgical History (Last Updated 11/10/18 @ 21:06 by RUTH Núñez) Hx of hernia repair (Resolved) Medical History (Last Updated 11/10/18 @ 22:46 by RUTH Núñez) Chest pain on exertion (Acute) Family history of premature CAD (Acute) Hordeolum externum (stye) (Acute) Patient denies significant medical history (Acute) Essential hypertension (Chronic) Swallowing disorder (Chronic) Uninsured (Chronic) Hyperlipidemia (Suspected) Physical Therapy Inpatient Evaluation/Re-Eval M1 PT/OT-IP Prior Functional Status Start: 11/11/18 15:43 Freq: NEEDED Status: Active Protocol: Document 11/11/18 14:30 AB (Rec: 11/11/18 15:54 AB [id number]) Medical Review Prior Functional Status Medical History Reviewed Yes Communication able to make needs known Mobility and Gait pt is independent with all mobilities and ambulation without AD Social History Household Members significant other Living Arrangements House Number of Floors (Floors) One Floor Number of Stairs To Enter/Railing? 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 [employer] M2 PT-IP Current Condition Start: 11/11/18 15:43 Freq: NEEDED Status: Active Protocol: Document 11/11/18 14:30 AB (Rec: 11/11/18 15:54 AB [id number]) Physical Therapy Current Condition Current Condition Evaluation Date 11/11/18 Treatment Diagnosis chest pain; difficulty in walking Onset Date 11/10/18 M3 PT-IP Subjective Start: 11/11/18 15:43 Freq: NEEDED Status: Active Protocol: Document 11/11/18 14:30 AB (Rec: 11/11/18 15:54 AB [id number]) Subjective Physical Therapy Visit Type Type Initial Evaluation Visit Start Time 14:30 Visit Stop Time 14:50 Total Visit Minutes 20 Number of GLOVE FINISHER Visits 0 Physical Therapy Visit Comments Patient Comments pt agreeable to do PT; no c/o chest pain or dizziness Patient Goals to go home Therapy Pain Assessment Pain Present Pain Present Denied Pain M4 PT-IP Mobility and Gait Start: 11/11/18 15:43 Freq: NEEDED Status: Active Protocol: Document 11/11/18 14:30 AB (Rec: 11/11/18 15:54 AB [id number]) PT-Bed Mobility Assessment Supine to Sit Supine to Sit Independent Sit to Supine Sit to Supine Independent Scooting Scooting to Edge of Bed Independent PT-Transfer Assessment Sit to and From Stand Sit to and from Stand Independent Equipment Transfer Assistive Device None Gait Assessment Gait Gait Assistance Required: Independent Distance (Feet) 250 Able to Maintain Weight Bearing Status Yes During Gait Assistive Devices Assistive Device None Comments Gait Comments BP137/83 at end to PT session Stair Climbing Assessment Evaluation Level of Assist On Stairs Standby Assistance Devices Stair Climbing Assistive Devices None Technique/Endurance Stair Climbing Direction Ascend and Descend Stair Climbing Technique Step Over Step Number of Steps Climbed 3 Query Text: Stair Climbing Set # Repetitions (reps) 1 PT-Balance Assessment Sitting Balance and Reactions Static Sitting Balance Ability Normal Dynamic Sitting Balance Ability Normal Standing Balance and Reactions Static Standing Balance Ability Normal Dynamic Standing Balance Ability Normal Device Used without AD Functional Assessments Functional Tests Tinetti Balance and Gait Assessment balance score: gait score 04/27 total score Other Functional Tests Performed pt is a low fall risk M5 PT-IP Objective Assessments Start: 11/11/18 15:43 Freq: NEEDED Status: Active Protocol: Document 11/11/18 14:30 AB (Rec: 11/11/18 15:54 AB [id number]) Orientation Orientation/Cognition Level of Alertness Alert Orientation Name Age Birthday Month Date Year Day of Week Place Situation Language Function Ability No Deficits Noted Safety Awareness Understands Safety Issues Memory Description No Deficits Noted Gross Range of Motion Lower Extremity ROM Assessment Within Functional Limits Strength Lower Extremity Strength Assessment Within Functional Limits Coordination Assessment Gross Coordination Gross Coordination WNL Sensation Assessment Sensation Gross Sensation WNL Muscle Tone Muscle Tone WNL Yes M7 PT-IP Assessment and Plan Start: 11/11/18 15:43 Freq: NEEDED Status: Active Protocol: Document 11/11/18 14:30 AB (Rec: 11/11/18 15:54 AB [id number]) PT Summary Assessment and Plan Potential Rehabilitation Potential Good Status of Condition at Evaluation Stable Summary Assessment Summary pt is independent with bed mobility, transfers and ambulation; SBA with stair climbing for safety. pt has no no c/o chest pain or other symptoms during activities. pt plans to go home and spouse will be able to assist if needed. No other PT intervention indicated. Pt is at prior level of function. Frequency of Treatment Frequency Of Treatment Discharge Recommendations To Nursing Amount of Assist Needed Independent Discharge Recommendations PT Discharge Recommendations Home
--- NOTE | 2018-11-11 15:28 | PC.NURSE ---
JESSICA bee Introduced myself to pt at start of shift, Dr. Lamas then entered the room to speak to pt regarding impending DC. No pain reported and I stepped out of the room. Will await further instructions for DC.
--- NOTE | 2018-11-11 15:50 | PM.DS.1 ---
History of Present Illness Date Patient Seen: 11/10/18 Chief complaint: CHEST PAIN Narrative: Written by Chelita MIRANDA: Joby Díaz is a 58-year-old male who presented with a 4 to five-day history of pain in his left chest under his arm. He states he has been dizzy. It worsens with exertion and relieved by rest. He particularly feels it when he is breathing and he describes the pain as being a dull ache with occasional throbbing this. He became nauseous and states that his balance is off feeling lightheaded. He has a history of being worked up and undergoing some sort of stress testing a few years ago but he does not remember the details of how exactly how long it was ago or what the reason was. The patient does not have health insurance and therefore does not go to a regular PCP. He did go to someone over in [place] but stated that the providers change frequently and it appears he was lost to follow-up. He previously took atenolol for blood pressure but found that it slowed him down. 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 He also stated that others around him seem to think it caused personality changes specifically being apathetic. The patient states that he has frequent headaches, he complains of having sores on his left lower eyelid and eye pain. He denies fever but states that his hands are always wet with sweat, he has chronic nasal congestion which he states impairs his breathing. His fiancee who was in the room states that he does not snore however it does sound to her like he stops breathing and then he will ?snort? and wake up. He denies palpitations, shortness of breath, he did have nausea and has been somewhat repellent by food, he denies diarrhea constipation. He also states that he has been urinating more often than usual. He complains of pain in his left upper leg stating that the vein gets quite swollen and enlarged particularly increased when he tries to massage. Discharge Providers Date of admission: 11/10/18 17:29 Discharge Date: 11/11/18 Primary care physician: Linda Woodall Consults: 11/10/18 18:36 Consult to Dietitian, Adult Routine Comment: Reason For Exam: weight loss/vegetarian Consult to Pastoral Services Routine Comment: would like a collective bargaining specialist visit 11/10/18 20:47 Consult to Sorting Grapple Operator Routine Comment: Needs PCP and insurance 11/11/18 13:42 Consult to Physical Therapy Evaluate & Treat Comment: Physician Instructions: Evaluate and Treat Discharge provider: Sofy Lamas DO Summary Discharge Diagnosis: 1. Acute chest pain, present on admission. Resolved. 2. History of hypertension. 3. History of hyperlipidemia. 4. Pain of the medial left thigh, secondary to varicose vein, chronic, present on admission. Stable. 5. Hordeolum externum (stye) 6. Hyperglycemia, present on admission. 7. Suspected sleep apnea, present on admission. Active. 8. Family history of premature coronary artery disease. Hospital Course: Joby Díaz is a 58-year-old male with a past medical history significant for hypertension and hyperlipidemia not medically compliant who presented with left-sided substernal chest pain. 1. Acute chest pain, present on admission. Resolved. -Patient presented with left-sided substernal chest pain, with associated shortness of breath especially on exertion, nausea, and diaphoresis that was relieved with nitroglycerin. -Serial troponins x3 negative at < 0.012. -Continued aspirin 81 mg daily. Ordered sublingual nitroglycerin and morphine as needed for chest pain. -Stress test demonstrated no evidence of ischemia per usual ECG criteria, average exercise capacity, and occasional PVC. -EKG did not demonstrate any acute ischemic changes. Inversion of T-wave in lead 3. -Echocardiogram ordered but not performed due to scheduling conflict. Recommended outpatient echocardiogram. -He is an unlikely candidate for beta-abram given his poor reaction to atenolol. 2. History of hypertension. -Patient is not medically treated as he did not like the way medication made him feel. -Patient initially mildly hypertensive on admission. Blood pressure, however, normalized. Recommended lifestyle modification including diet and exercise. Instructed patient to establish care with PCP with close monitoring of BP before initiating antihypertensive medication. 3. Hyperlipidemia, chronic, present on admission. Stable. -Fasting lipid panel demonstrated: Total cholesterol 161, triglycerides 107, LDL 102 (goal < 100), HDL 38. Encouraged intake of Conde 3. -Patient is not medically treated. 4. Pain of the medial left thigh, secondary to varicose vein, chronic, present on admission. Stable. -Venous Doppler ultrasound negative for DVT. 5. Hordeolum externum (stye) -Continued erythromycin ophthalmic ointment applied twice daily. 6. Hyperglycemia, present on admission. -Patient had very mildly elevated glucose at 101 and 106. 7. Suspected sleep apnea, present on admission. Active. -Patient's spouse reports he occasionally snores and often holds his breath. -Recommended outpatient sleep study. 8. Family history of premature coronary artery disease. -Patient closely monitored for hypertension (borderline at times and normal at others). Status at Discharge Functional status at discharge: independent ambulation Overall status at discharge: patient is back to baseline Exam Vital Signs (past 8 hours): - 11/11/18 09:10 11/11/18 11:40 Temperature 97.9 F Pulse Rate 65 Respiratory Rate 16 Blood Pressure 132/64 Pulse Oximetry 97 96 Oxygen Delivery Method Room Air Oxygen Flow Rate 0 Narrative Exam Narrative: General: Middle-aged gentleman sitting in bed and in no acute distress, well-developed, well-nourished, appropriately interactive. HEENT: Normocephalic, atraumatic. External ears without defect. Pupils equal, round, and reactive to light. Anicteric sclerae, moist conjunctivae, and no lid lag. Oropharynx free of erythema and cobble stoning with moist mucosa. Neck: Supple with full range of motion. No jugular venous distension. No bruits. No lymphadenopathy or thyromegaly. Cardiovascular: Regular rate and rhythm without murmurs, rubs, or gallops appreciated. Pulmonary: Clear to auscultation bilaterally without crackles, wheezes, or rhonchi. Normal respiratory effort with no use of accessory muscles. Abdomen: Soft, bowel sounds present, nontender, nondistended. No hepatosplenomegaly or masses appreciated. Extremities: No clubbing, cyanosis, or edema. Skin: Normal temperature, turgor, and texture; no rash, ulcers, or subcutaneous nodules appreciated. Neurological: Cranial nerves grossly intact. Normal muscle strength, tone, and bulk. Reflexes, coordination, and sensory function within normal limits. No known gait impairment. No focal neurological deficits. Psychiatric: Normal mood and affect. Alert and oriented to person, place, and time. Objective Labs Result Diagrams: 11/11/18 05:40 11/11/18 05:40 Labs: Laboratory Results - last 24 hr 11/10/18 11/10/18 11/10/18 15:05 21:33 21:33 WBC RBC Hgb Hct MCV MCH MCHC RDW Plt Count Neut % (Auto) Lymph % (Auto) Jackson % (Auto) Eos % (Auto) Baso % (Auto) Neut # (Auto) Lymph # (Auto) Jackson # (Auto) Eos # (Auto) Baso # (Auto) PT 12.9 H INR 1.1 Sodium Potassium Chloride Carbon Dioxide BUN Creatinine Estimated GFR BUN/Creatinine Ratio Glucose Calcium Phosphorus Magnesium Troponin I < 0.012 B-Natriuretic Peptide < 100 Triglycerides Cholesterol LDL Cholesterol, Calc HDL Cholesterol 11/10/18 11/11/18 11/11/18 21:33 05:40 05:40 WBC RBC Hgb Hct MCV MCH MCHC RDW Plt Count Neut % (Auto) Lymph % (Auto) Jackson % (Auto) Eos % (Auto) Baso % (Auto) Neut # (Auto) Lymph # (Auto) Jackson # (Auto) Eos # (Auto) Baso # (Auto) PT INR Sodium 142 Potassium 4.0 Chloride 107 Carbon Dioxide 26 BUN 13 Creatinine 0.90 Estimated GFR > 60.0 BUN/Creatinine Ratio 14.4 Glucose 106 H Calcium 8.8 Phosphorus 3.6 Magnesium 1.9 Troponin I < 0.012 B-Natriuretic Peptide Triglycerides Cholesterol LDL Cholesterol, Calc HDL Cholesterol 11/11/18 11/11/18 11/11/18 05:40 05:40 08:15 WBC 6.9 RBC 5.49 Hgb 17.2 Hct 50.1 MCV 91.2 MCH 31.3 MCHC 34.3 RDW 13.3 Plt Count 191 Neut % (Auto) 60.3 Lymph % (Auto) 28.5 Jackson % (Auto) 9.6 Eos % (Auto) 1.1 L Baso % (Auto) 0.5 Neut # (Auto) 4100 Lymph # (Auto) 2000 Jackson # (Auto) 700 Eos # (Auto) 100 Baso # (Auto) 0 PT INR Sodium Potassium Chloride Carbon Dioxide BUN Creatinine Estimated GFR BUN/Creatinine Ratio Glucose Calcium Phosphorus Magnesium Troponin I < 0.012 B-Natriuretic Peptide Triglycerides 107 Cholesterol 161 LDL Cholesterol, Calc 102 H HDL Cholesterol 38 L Discharge Plan Discharge Plan Patient Disposition: Home Discharge comment: Your being discharged home. Recommend you established care with a primary care physician in your community. If you are unable to find a physician to establish with try [facility] (Internal medicine or Family medicine). Once you're able to establish care please discuss borderline hypertension, possible sleep apnea and need for a sleep study, and echocardiogram. If you have return of your symptoms you may need an event monitor. It is unclear what caused your symptoms but may have possibly been related to dehydration and heat stroke therefore, please try to increase the amount of water consumed (half your body weight in ounces). Your EKG, heart enzymes, and stress test were all within normal limits and did not demonstrate heart attack or impending heart attack. Please implement lifestyle modification including: Diet and exercise as discussed. Please try to increase your consumption of omega-3 through diet and if unable than with supplementation. Discharge Med Rec/Prescriptions Prescriptions: No Action No Known Home Medications RF: 0 Follow up/Referrals: Linda Woodall [Primary Care Provider] - Provider Discharge Instructions Diet: Low-fat, Low-sodium and Low-cholesterol Activity: Activity as tolerated Visit Report/Discharge Packet Instructions: The Mediterranean Diet and Good Health, The DASH Diet, Treatments for High Blood Pressure: More Than Just Taking a Pill, Recommendations to Help Prevent High Blood Pressure, Fish Oil (Alternative Therapy), Heat Exhaustion and Heat Stroke, Echocardiogram, DI for Cardiac Stress Test Discharge Data Primary Care Provider: Linda Woodall Attending Provider: Sofy Lamas Admit Date/Time: 11/10/18 17:29 Discharges patient from system. Discharge Date/Time: 11/11/18 16:44 Quality VTE Deep Vein Thrombosis/Pulmonary Embolism Present on Admission: No
--- NOTE | 2018-11-12 08:22 | CM.DPC ---
DCP Discharge Home: Per MD, pt was medically stable to d/c home via Sig Other POV last night after stress test results and no identified barriers to discharge beyond pt's lack of medical insurance. Per Admission Counselor Charley, pt is over the financial limit to qualify for Medicaid and missed the open enrollment for insurance at this time and Admission Counselor provided him with the [facility] Application. Plan: Patient was stable for d/c home last night 11/11/18 after SW shift via Sig Other POV. GER Romo
== END 2018-11-11 16:44 | disposition home or self-care (01) ==
LOC: ED 16:58 → AC 17:29
PROVIDERS: Nurse Practitioner Family; Admitting Provider Internal Medicine; Emergency Provider Emergency Medicine; Family Provider Nurse Practitioner Family; PCP Nurse Practitioner Family; Visit Provider Internal Medicine
DX: R07.9 Chest pain, unspecified (principal); I10 Essential (primary) hypertension; E78.5 Hyperlipidemia, unspecified; M79.652 Pain in left thigh; H00.019 Hordeolum externum unspecified eye, unspecified eyelid
CPT/HCPCS: 36415; 36591; 71045; 80048; 80053; 80061; 81003; 82550; 83690; 83735; 83880; 84100; 84484; 85025; 85610; 85730; 93005; 93016; 93017; 93018; 93970; 96360; 96361; 96372; 97161; 99283; 99285; G0378; J1650

== ENCOUNTER → 2019-05-08 17:21 | Outpatient (CLI) | payer OTHER, SELFPAY ==
--- NOTE | 2019-05-08 | DI.MRI.S_ITS ---
PROCEDURE: MR SHOULDER RT WO CON INDICATIONS: RIGHT SHOULDER PAIN TECHNIQUE: Noncontrast oblique coronal T2 fast spin echo with fat saturation, oblique sagittal T1 spin echo and T2 fast spin echo with fat saturation, axial T1 spin echo and T2 fast spin echo with fat saturation through the shoulder. COMPARISON: None. FINDINGS: Image quality: Excellent. Rotator cuff: There is minimal bursal sided partial-thickness tearing at the insertion of the supraspinatus involving the anterior fibers. This measures approximately 7 mm in anteroposterior dimension. The infraspinatus, subscapularis, and teres minor appear intact. Sagittal images demonstrate no fatty muscle atrophy. Bones and bursae: No bone marrow contusions or fractures. There is moderate acromioclavicular joint degeneration. The acromion demonstrates mild lateral downsloping, without an os acromiale. A small amount of subacromial-subdeltoid bursal fluid is present. There is mild glenohumeral joint degeneration with mild cartilage thinning. Capsule and soft tissues: There is mild tearing in the posterosuperior and posterior labrum with an associated small posterior paralabral cyst measuring up to 7 mm. In the absence of intra-articular contrast, the glenohumeral ligaments appear intact. The long head of the biceps tendon demonstrates normal location and morphology. The rotator interval appears normal, without fibrosis. The coracohumeral ligament is normal in thickness. IMPRESSION: 1. Mild tearing in the posterosuperior and posterior labrum with an associated small posterior paralabral cyst. 2. Minimal bursal sided partial thickness tearing at the insertion of the supraspinatus anteriorly. No high-grade or full-thickness rotator cuff tear. 3. Moderate acromioclavicular joint degeneration with mild lateral downsloping of the acromion and a small amount of subacromial/subdeltoid bursal fluid. Dictated by: Christiano Gomez M.D. on 05/09/2019 at 10:06 Approved by: Christiano Gomez M.D. on 05/09/2019 at 10:13
== END ==
PROVIDERS: Family Provider Nurse Practitioner Family; PCP Nurse Practitioner Family; Visit Provider Nurse Practitioner Family
DX: M25.511 Pain in right shoulder (principal); S43.431A Superior glenoid labrum lesion of right shoulder, initial encounter; M19.011 Primary osteoarthritis, right shoulder
CPT/HCPCS: 73221

== ENCOUNTER → 2019-06-09 06:59 | Outpatient (CLI) | payer OTHER, SELFPAY ==
--- NOTE | 2019-06-09 | DI.RAD.S_ITS ---
PROCEDURE: XR ELBOW RT MIN 3V INDICATIONS: Pain in right elbow TECHNIQUE: 3 views of the elbow were acquired. COMPARISON: None. FINDINGS: Bones: No fractures or dislocations. No suspicious bony lesions. Mild cortical hypertrophy/spurring of the lateral epicondyle. Minimal spurring at the olecranon tip. Soft tissues: No elbow joint effusion. No suspicious soft tissue calcifications. IMPRESSION: Findings suggest chronic lateral epicondylitis syndrome. Recommend clinical correlation exam findings. If the patient's pain or other symptoms persist, consider further evaluation with MRI Dictated by: Ryan Stovall M.D. on 06/09/2019 at 8:42 Approved by: Ryan Stovall M.D. on 06/09/2019 at 8:44
== END ==
PROVIDERS: Family Provider Nurse Practitioner Family; PCP Nurse Practitioner Family; Visit Provider Nurse Practitioner Family
DX: M25.521 Pain in right elbow (principal)
CPT/HCPCS: 73080

== ENCOUNTER 2019-07-15 18:44 | Observation (INO) | payer SELFPAY ==
[2019-07-15] VITALS (9 sets, daily range): BP systolic 113–184; BP diastolic 65–104; PULSE 72–99; RESP 12–22; TEMP 36.2–36.8; O2SAT 93–99; BMI 28.5
--- NOTE | 2019-07-15 19:11 | ED.SKABFB ---
HPI - Skin/Abscess/Foreign Bdy General Chief complaint: Skin/Abscess/Foreign Body Stated complaint: FOOD STUCK IN THROAT Time Seen by Provider: 07/15/19 19:10 Source: patient Mode of arrival: Ambulatory Limitations: no limitations History of Present Illness HPI narrative: 59-year-old male comes to the emergency department with complaint of food stuck in his throat. Patient states that about 20 30 minutes ago he was eating a [employer] hamburger and states it feels like it is stuck in his esophagus. He has had this episode happened multiple times in the past and states he has responded to IV medication. He states he has had a EGD in the past and told that his often gets is narrow but has never been dilated. By his description it sounds like he did not have an impacted food bolus at that time but was an outpatient scope. He denies other medical problems. He denies any allergies to medications. He states he has not been able to swallow his secretions or saliva. Patient drove himself here today. Related Data Previous Rx's Medication Instructions Recorded pantoprazole [Protonix] 20 mg PO DAILY #60 tab 07/15/19 Allergies Allergy/AdvReac Type Severity Reaction Status Date / Time No Known Drug Allergies Allergy Verified 11/10/18 15:44 Review of Systems Review of Systems ROS Unobtainable: All systems reviewed & are unremarkable except as noted in HPI and below Patient History Medical History Chest pain on exertion (Acute) Essential hypertension (Chronic) Family history of premature CAD (Acute) Hordeolum externum (stye) (Acute) Hyperlipidemia (Suspected) Patient denies significant medical history (Acute) Swallowing disorder (Chronic) Uninsured (Chronic) Surgical History Hx of hernia repair (Resolved) Social History household members: spouse Smoking Status: Never smoker Smoking Status: Never smoker alcohol intake frequency: holidays/special occasions only Substance Use Type: does not use Exam Narrative Exam Narrative: GENERAL: Alert and oriented x three, well-nourished male in moderate distress HEENT: Head normocephalic, atraumatic, EOMI, pupils reactive, face symmetric, moist mucous membranes, no foreign body noted in oropharynx. Patient is actively spitting saliva and unable to swallow it. NECK: Supple, full range of motion CARDIOVASCULAR: Regular rate and rhythm without murmurs, rubs or gallops. RESPIRATORY: Breath sounds equal bilaterally, no wheezes rales or rhonchi. ABDOMEN: Soft, nontender. Normoactive bowel sounds all 4 quadrants. No guarding or rebound, rigidity, no mass EXTREMITIES: Normal range of motion, no clubbing or edema. Neurovascularly intact. Normal gait. NEUROLOGICAL: Cranial nerves II through XII grossly intact. Moving all extremities SKIN: Warm, dry, no petechiae, no rashes or lesions. Initial Vital Signs Initial Vital Signs: Vital Signs Temperature 97.6 F 07/15/19 18:55 Pulse Rate 99 H 07/15/19 18:55 Respiratory Rate 16 07/15/19 18:55 Blood Pressure 184/104 H 07/15/19 18:55 Pulse Oximetry 99 07/15/19 18:55 Course Orders Ordered: Discontinued Medications Fentanyl (Sublimaze) 0 mcg IV Q5M PRN PRN Reason: Pain, Moderate (4-6) Glucagon (Glucagen) 1 mg IV NOW ONE Stop: 07/15/19 19:16 Last Admin: 07/15/19 19:24 Dose: 1 mg Documented by: MARNI Lactated Ringer's (Lactated Ringers) 1,000 mls @ 42 mls/hr IV CONT MARGARETTE Last Infusion: 07/15/19 22:08 Dose: 0 mls/hr Documented by: EFFIEAMRIGOBERTO Admin: 07/15/19 20:44 Dose: 42 mls/hr Documented by: EFFIEAMRIGOBERTO Metoclopramide HCl (Reglan) 10 mg IV NOW PRN PRN Reason: Nausea And Vomiting Ondansetron HCl (Zofran) 4 mg IV NOW PRN PRN Reason: Nausea And Vomiting Vital Signs Vital signs: Vital Signs - 8 hr 07/15/19 18:55 Temperature 97.6 F Pulse Rate 99 H Respiratory Rate 16 Blood Pressure 184/104 H Pulse Oximetry 99 MDM - Skin/Abscess/Foreign Bdy MDM Narrative Medical decision making narrative: Patient states that he has had IV medication in the past this is likely glucagon and IV was placed in a dose was given here in the emergency department along with fluids swallowed orally. Patient was reassessed and at this time he was unable to swallow clear liquids and continues to be unable to swallow his own secretions. Spoke with Dr. Mccain, he will come to the department. He asks that we contact the OR crew to come in for the patient, plan for for EGD with likely discharge home. Dr. Mccain in the department to see the patient and consent here. Discharge Plan Departure Patient Disposition: Admitted as Observation Clinical Impression: Food impaction of esophagus Qualifiers: Encounter type: initial encounter Qualified Code(s): T18.128A - Food in esophagus causing other injury, initial encounter Discharge Date/Time: 07/15/19 20:29 Admit Date/Time: 07/15/19 20:02 Admit Provider: Manas Mccain
--- NOTE | 2019-07-15 19:16 | PC.NURSE ---
Pt reports 10/10 pain in esophagus s/p fast food stuck in throat. Pt spitting into cup, unable to swallow. States this has happened many times in the past.
[2019-07-15] MEDS: GLUCAGON,HUMAN RECOMBINANT 1 MG/ML VIAL IV (19:24)
--- NOTE | 2019-07-15 20:11 | PM.HP.1 ---
History of Present Illness History of Present Illness Date Patient Seen: 07/15/19 Time Patient Seen: 20:12 Chief complaint: FOOD STUCK IN THROAT Narrative: Joby is a 59-year-old male seen in the emergency room for an acute food impaction within his esophagus. He has a history of dysphagia a he has had previous items stuck within esophagus that eventually see the past spontaneously. Unfortunately the in the sitting he was eating dinner cut a piece of food stuck within his esophagus he has been unable to pass. Presented to the emergency room where he received glucagon and pain medication without improvement. Currently he is unable tolerate his own secretions. He is not on anticoagulation, no history of asthma he has tolerated general anesthesia previously for hernia repair. Patient History Medical History Chest pain on exertion (Acute) Essential hypertension (Chronic) Family history of premature CAD (Acute) Hordeolum externum (stye) (Acute) Hyperlipidemia (Suspected) Patient denies significant medical history (Acute) Swallowing disorder (Chronic) Uninsured (Chronic) Surgical History Hx of hernia repair (Resolved) Family & Social History Social History: household members significant other Safety & Behavioral: Feels Safe in Current Yes Environment Been Physically Hurt or No Threatened By a Person Tobacco & Substance use: Smoking Status Never smoker alcohol intake frequency holiday/special occasion Substance Use Type does not use Meds Home Medications and Allergies Home Medications Medication Instructions Recorded Confirmed Type No Known Home Medications 11/10/18 11/10/18 History Allergies Allergy/AdvReac Type Severity Reaction Status Date / Time No Known Drug Allergies Allergy Verified 11/10/18 15:44 Review of Systems Review of Systems Narrative: A 10 point review of systems is negative except as noted in the HPI Exam Vital Signs (past 8 hours): - 07/15/19 18:55 Temperature 97.6 F Pulse Rate 99 H Respiratory Rate 16 Blood Pressure 184/104 H Pulse Oximetry 99 Oxygen Delivery Method Room Air Narrative Exam Narrative: General-adult male in distress unable to tolerate his secretions. HEENT-moist mucous membranes, no scleral icterus Neck-supple, no lymphadenopathy Chest- non labored respirations, clear to auscultation bilaterally Cardiac-regular rate no peripheral edema Abdomen-soft, nontender, non distended Extremities-warm, well perfused Neurological-alert and oriented, no focal deficits Assessment & Plan Assessment and plan (1) Food impaction of esophagus: Qualifiers: Encounter type: initial encounter Qualified Code(s): T18.128A - Food in esophagus causing other injury, initial encounter Current visit: Yes Status: Acute Assessment & Plan narrative: Joby is a 51-year-old male with an acute food impaction within the esophagus. He is unable to clear the impaction despite glucagon and morphine treatment and is unable to handle his own secretions at this time. Esophagoduodenoscopy is indicated for therapeutic purpose. We discussed the technical nature of the procedure including its associated risks of bleeding perforation. His questions have been answered he is in agreement with this plan will proceed to the operating room.
[2019-07-15] MEDS: LACTATED RINGERS 1,000 ML 42 ML IV (20:44)
--- NOTE | 2019-07-15 21:54 | PM.OP.ENDO ---
Operative Date/Time/Diagnoses Date of procedure: 07/15/19 Time of procedure: 21:54 Pre-op diagnosis: Esophageal food bolus impaction Post-op diagnosis: same Procedure & Clinicians Study performed: Esophagoduodenoscopy Same procedure as scheduled: Yes Indications: Impacted food bolus within the esophagus unable to tolerate secretions Surgeon: Manas Mccain Procedure Notes SCOAP/Timeout: Performed Procedure in detail: Patient placed in left lateral decubitus position. Time out was performed. Sedation was administered by the anesthesiologist. A bite block was placed. the scope was inserted into the mouth and advanced through the esophagus. Large a food bolus was encountered in the midesophagus and was pushed into the stomach. The esophagus and stomach were thoroughly irrigated and suctioned. Stomach was desufflated and scope removed. Patient tolerated procedure well. Findings: other findings (Food bolus) Complications: none Impression: Esophageal stricture Post-procedure Recommendations: Other recommendation (Repeat EGD in 1 month with possible dilation) Disposition: same day surgery
--- NOTE | 2019-07-15 21:54 | SUR.PHASEI ---
Pt arrived to PACU, Dr. Burns gave dose of fentanyl upon arrival. Pt now resting comfortably.
--- NOTE | 2019-07-15 22:24 | SUR.PHASEII ---
brought in, d/c instructions discussed. Both voiced an understanding. Pt left when ready and left in stable condition.
== END 2019-07-15 22:28 | disposition home or self-care (01) ==
LOC: ED 20:02 → AC 20:03
PROVIDERS: Admitting Provider Surgery; Emergency Provider Emergency Medicine; Family Provider Nurse Practitioner Family; PCP Nurse Practitioner Family; Referring Provider Emergency Medicine; Visit Provider Surgery
PROC: 0DJ08ZZ Inspection of Upper Intestinal Tract, Via Natural or Artificial Opening Endoscopic (ICD-10-PCS; CPT 43235; principal; 2019-07-15 20:25)
DX: T18.128A Food in esophagus causing other injury, initial encounter (principal)
CPT/HCPCS: 43247; 36415; 96374; 99218; 99284; G0378; J0330; J1100; J1610; J2405; J2704; J3010

== ENCOUNTER 2022-09-13 11:52 | Emergency (ER) | payer OTHER, MEDICAID, SELFPAY ==
[2022-09-13 11:55] VITALS: BP 137/91; PULSE 115; RESP 16; TEMP 36.4; O2SAT 97; BMI 25.7
--- NOTE | 2022-09-13 12:09 | ED_ITS ---
HPI - General Adult General Chief complaint: Abdominal Pain Stated complaint: 3 GLF in the last 24hrs- hit head Time Seen by Provider: 09/13/22 12:02 Source: patient and family Mode of arrival: Wheelchair History of Present Illness HPI narrative: Patient is a 62-year-old male. History of metastatic rectal cancer that does not involve his liver. He is under the care of hospice. He has been in hospice for less than 1 week. He is here with his . His states that for the past 24 hours he is fallen 3 different times. No specific reported injuries. He is not on anticoagulation. He states that the hospice nursing staff did come out to their house last evening. They have tried to make some changes to his medications however his states there to having a difficult time keeping him calm. stated that they were told that they potentially needed to come to the emergency department for further evaluation. Patient does not have specific complaints nor pain. Related Data Previous Rx's Medication Instructions Recorded pantoprazole 20 mg tablet,delayed 20 mg PO DAILY #60 tabs 07/15/19 release (Protonix) Allergies Allergy/AdvReac Type Severity Reaction Status Date / Time No Known Drug Allergies Allergy Verified 11/10/18 15:44 Review of Systems Review of Systems ROS Unobtainable: All systems reviewed & are unremarkable except as noted in HPI and below Patient History Medical History Chest pain on exertion Essential hypertension Family history of premature CAD Hordeolum externum (stye) Hyperlipidemia Patient denies significant medical history Swallowing disorder Uninsured Surgical History Hx of hernia repair Family History (Updated 11/10/18 @ 22:10 by RUTH Núñez) Mother Myocardial infarct Father CVA (cerebral vascular accident) Lung cancer Sister Diabetes mellitus Social History household members: spouse Smoking Status: Never smoker Smoking Status: Never smoker alcohol intake frequency: holidays/special occasions only Substance Use Type: does not use Exam Initial Vital Signs Initial Vital Signs: Vital Signs Temperature 97.5 F L 09/13/22 11:55 Pulse Rate 115 H 09/13/22 11:55 Respiratory Rate 16 09/13/22 11:55 Blood Pressure 137/91 H 09/13/22 11:55 Pulse Oximetry 97 09/13/22 11:55 Oxygen Delivery Method Room Air 09/13/22 11:55 Const General: cooperative HENMT Head: normal to inspection and normocephalic Resp Effort & Inspection: normal respiratory effort Cardio Rate: regular rate Skin Other: Jaundice Neuro General: patient alert and patient awake Extrem Other: No gross deformities Course Vital Signs Vital signs: Vital Signs - 8 hr 09/13/22 11:55 Temperature 97.5 F L Pulse Rate 115 H Respiratory Rate 16 Blood Pressure 137/91 H Pulse Oximetry 97 Oxygen Delivery Method Room Air Medical Decision Making MDM Narrative Medical decision making narrative: I did have a discussion with Rebekah who was on-call for would be [facility]. She stated that she did not know that the patient was coming to the emergency department today. She stated that she was trying to get a hold of the patient's family throughout the morning but has been unable to. There are plans for nursing to come back out to see the patient. There is also plans for social work to be involved tomorrow. I did discuss this with the patient's . She stated that ?we were just in the area ?so she decided to stop by the emergency department. No further workup required here in the ER. Will discharge patient home for continued care with hospice. Discharge Plan Departure Patient Disposition: Home Clinical Impression: Jaundice, Rectal cancer Instructions: How to Prevent Falls Activity Restrictions/Additional Instructions: Hospice is aware of the situation and they state that they are very comfortable taking care of Joby. There is a plan for nursing to come back out to see you and also plan for social work to come out for evaluation tomorrow. I recommend that you continue all of your medications as directed and follow-up with hospice. Prescriptions: No Action pantoprazole [Protonix] 20 mg tablet,delayed release (DR/EC) 20 mg PO DAILY Qty: 60 0RF Referrals: Linda Woodall FNP-[facility] [Primary Care Provider] - Stand Alone Forms: Patient Portal/API
== END 2022-09-13 13:49 | disposition home or self-care (01) ==
PROVIDERS: Emergency Provider Emergency Medicine; Family Provider Nurse Practitioner Family; PCP Nurse Practitioner Family
DX: R17 Unspecified jaundice (principal); C20 Malignant neoplasm of rectum
CPT/HCPCS: 99281